=== PATIENT | female | born 1975 | race Two or more races ===

== ENCOUNTER 2017-04-15 17:35 | Emergency (ER) | payer OTHER ==
[~2017-04-15] VITALS: Ht 160 cm; Wt 75.7 kg
[2017-04-15 18:16] LABS: Basophils # (auto) 0 uL; Basophils % (auto) 0.3 % (0.0-2.0); CONDITION Y; DEFINITIVE SEE PRINTOUT; Eosinophils # (auto) 0.1 uL; Hematocrit 32.9 % (36.0-46.0); Hemoglobin 10.4 g/dL (12.2-16.2); Lymphocytes # (auto) 1.3 uL; Lymphocytes % (auto) 18.3 % (10.0-50.0); Mean Corpuscular Hemoglobin 22.1 pg (28.0-32.0); Mean Corpuscular Hgb Conc. 31.5 g/dL (32.0-36.0); Mean Corpuscular Volume 70.2 fL (80.0-100.0); Mean Platelet Volume 8.2 fL (7.4-10.4); Monocytes # (auto) 0.5 uL; Neutrophils # (auto) 5.1 uL; Neutrophils % (auto) 73.4 % (37.0-80.0); Platelet Count (auto) 492 10^3/uL (140-450); Red Cell Distribution Width 17.6 % (11.6-16.0); White Blood Cell 6.9 10^3/uL (4.4-10.8)
[2017-04-15 18:47] LABS: Albumin 3.8 g/dL (3.4-5.0); Alkaline Phosphatase 107 U/L (45-117); Anion Gap 7 (5-15); Aspartate Aminotransferase 27 U/L (15-37); Bilirubin, Total 0.3 mg/dL (0.2-1.0); Blood Urea Nitrogen 9 mg/dL (7-18); Calcium 8.8 mg/dL (8.5-10.1); Carbon Dioxide 26 mmol/L (21-32); Chloride 104 mmol/L (98-107); GFR African American 99 mL/min; GFR Non-African American 82 mL/min; Glucose 101 mg/dL (74-106); Potassium 3.4 mmol/L (3.5-5.1); Sodium 137 mmol/L (136-145); Total Protein 8.5 g/dL (6.4-8.2)
[2017-04-15 19:54] LABS: Urine Bilirubin Negative (Negative); Urine Blood Negative /uL (Negative); Urine Color Yellow (Yellow); Urine Glucose Normal (Normal); Urine Ketone Negative (Negative); Urine Mucus FEW (None Seen); Urine Nitrite Negative (Negative); Urine RBC <1 /hpf (0 - 4); Urine Squamous Epithelial Cell FEW /hpf (<5); Urine Urobilinogen Normal (Negative)
[2017-04-15 22:27] VITALS: BP 102/48
== END 2017-04-15 23:31 | disposition home or self-care (01) ==
LOC: ER 17:50
DX: R55 Syncope and collapse (principal); R51 Headache; Z90.89 Acquired absence of other organs; W19.XXXA Unspecified fall, initial encounter; Y93.89 Activity, other specified; Y99.8 Other external cause status; Y92.89 Other specified places as the place of occurrence of the external cause
CPT/HCPCS: 36415; 70450; 71010; 80053; 80307; 81001; 82962; 84484; 85025; 93005

== ENCOUNTER 2023-03-25 05:32 | Emergency (ER) | payer OTHER ==
[~2023-03-25] VITALS: Ht 160 cm; Wt 77.2 kg
[2023-03-25 05:33] VITALS: BP 111/73; PULSE 70; RESP 18; TEMP 98; O2SAT 97
[2023-03-25] MEDS ORDERED: DexAMETHasone SOD PHOS 10MG/1ML VIAL INJ IM ONE (07:15)
[2023-03-25] MEDS ORDERED: BENZ100C97 PO (07:59)
[2023-03-25] MEDS ORDERED: PROM1SOL4 PO (07:59)
== END 2023-03-25 08:11 | disposition home or self-care (01) ==
LOC: ER 05:32
DX: J02.9 Acute pharyngitis, unspecified (principal); Z90.49 Acquired absence of other specified parts of digestive tract
CPT/HCPCS: 96372; 99283; J1100

== ENCOUNTER 2023-04-02 11:45 | Emergency (ER) | payer OTHER ==
[~2023-04-02] VITALS: Ht 160 cm; Wt 74.2 kg
[~2023-04-02 11:45] MED LIST: BENZ100C97 PO; PROM1SOL4 PO
[2023-04-02 12:40] LABS: Basophils # (auto) 0 10 ^3/uL (0-0.2); Eosinophils # (auto) 0 10 ^3/uL (0-0.8); Mean Corpuscular Volume 58.5 fL (80.0-100.0); Neutrophils # (auto) 7.7 10 ^3/uL (1.6-8.6)
[2023-04-02 12:42] LABS: Basophils % (auto) 0.4 % (0.0-2.0); Hematocrit 26.7 % (36.0-46.0); Hemoglobin 7.7 g/dL (12.2-16.2); Lymphocytes # (auto) 0.8 10 ^3/uL (0.4-5.4); Lymphocytes % (auto) 9.1 % (10.0-50.0); Mean Corpuscular Hemoglobin 16.9 pg (28.0-32.0); Mean Corpuscular Hgb Conc. 28.9 g/dL (32.0-36.0); Monocytes # (auto) 0.5 10 ^3/uL (0-1.3); Monocytes % (auto) 5.1 % (0.0-12.0); Neutrophils % (auto) 85.4 % (37.0-80.0); Nucleated Red Blood Cells % 0.1 %; Red Blood Cells 4.56 10^6/uL (4.0-5.20)
[2023-04-02 12:42] LABS: Urine Bacteria MANY /hpf (None Seen); Urine Blood TRACE /uL (Negative); Urine Clarity HAZY (Clear); Urine Color Yellow (Yellow); Urine Hyaline Cast MOD /lpf (0 - 2); Urine Mucus MANY (None Seen); Urine Protein, UAD 1+ (Negative); Urine Specific Gravity 1.026 (1.001-1.035); Urine Urobilinogen Normal (Negative); Urine WBC 221 /hpf (0 - 5); Urine pH 5.5 (5.0-8.0)
[2023-04-02 12:46] LABS: Red Cell Distribution Width 20.7 % (11.8-14.3)
[2023-04-02 13:14] LABS: Albumin 4.3 g/dL (3.4-5.0); Calcium 9.1 mg/dL (8.5-10.1)
[2023-04-02 13:17] LABS: Bilirubin, Total 0.4 mg/dL (0.2-1.0); Total Protein 8.3 g/dL (6.4-8.2)
[2023-04-02] MEDS ORDERED: NITROFURANTOIN 100 mg CAP PO ONE (13:30)
[2023-04-02 14:00] LABS: Anisocytosis Slight; Hypochromia Marked; Platelet Estimate Adequate
[2023-04-02 15:25] VITALS: BP 124/88; TEMP 98.2
[2023-04-02] MEDS ORDERED: ONDA-155 PO (15:35)
[2023-04-02] MEDS ORDERED: FER325T PO (15:35)
[2023-04-02] MEDS ORDERED: NITR-87 PO (15:35)
[2023-04-02 15:39] VITALS: PULSE 83; RESP 15; O2SAT 99
== END 2023-04-02 15:41 | disposition home or self-care (01) ==
LOC: ER 11:45
DX: R55 Syncope and collapse (principal); R10.2 Pelvic and perineal pain; N39.0 Urinary tract infection, site not specified; R94.31 Abnormal electrocardiogram [ECG] [EKG]; D64.9 Anemia, unspecified; Z79.899 Other long term (current) drug therapy; Z88.0 Allergy status to penicillin; Z88.5 Allergy status to narcotic agent
CPT/HCPCS: 36415; 70450; 80053; 81001; 82962; 84484; 84702; 85025; 93005

== ENCOUNTER 2024-02-04 21:37 | Emergency (ER) | payer OTHER ==
[~2024-02-04] VITALS: Ht 160 cm; Wt 78.8 kg
[~2024-02-04 21:37] MED LIST changes: +FER325T PO; +NITR-87 PO; +ONDA-155 PO
[2024-02-05] MEDS ORDERED: CLIN1CAP70 PO (07:07)
[2024-02-05] MEDS ORDERED: NAPR-746 PO (07:07)
[2024-02-05 07:19] VITALS: BP 105/60; PULSE 51; RESP 16; O2SAT 100
== END 2024-02-05 07:24 | disposition home or self-care (01) ==
LOC: ER 21:37
DX: S09.93XA Unspecified injury of face, initial encounter (principal); Z88.5 Allergy status to narcotic agent; Z88.0 Allergy status to penicillin; Z90.49 Acquired absence of other specified parts of digestive tract; Z79.899 Other long term (current) drug therapy; W01.198A Fall on same level from slipping, tripping and stumbling with subsequent striking against other object, initial encounter; Y93.89 Activity, other specified; Y92.89 Other specified places as the place of occurrence of the external cause; Y99.8 Other external cause status